=== PATIENT | male | born 1975 | race Caucasian/White ===

== ENCOUNTER 2021-05-31 09:58 | Emergency (ER) | payer BC ==
[~2021-05-31] VITALS: Ht 172.7 cm; Wt 75.0 kg
[2021-05-31] MEDS ORDERED: TRAMADOL HYDROC50 M1 PO (11:10)
[2021-05-31] MEDS ORDERED: IBUPROFEN600 MG PO (11:11)
[2021-05-31 11:30] VITALS: BP 172/96
== END 2021-05-31 11:39 | disposition home or self-care (01) | DRG 556 ==
LOC: ED 09:58
DX: M79.662 Pain in left lower leg (principal)